=== PATIENT | female | born 1990 ===

== ENCOUNTER 2018-06-27 21:45 | Emergency (ER) | payer OTHER ==
[2018-06-27 21:45] VITALS: BMI 34.9
[2018-06-27 21:52] VITALS: BP 110/56; PULSE 74; RESP 16; TEMP 98.2; O2SAT 98
[2018-06-27 22:35] LABS: SQUAMOUS EPITHIAL 2 /hpf (0-5); URINE BACTERIA RARE (<OCC); URINE BILIRUBIN NEGATIVE (NEGATIVE); URINE BLOOD NEGATIVE (NEGATIVE); URINE CLARITY Hazy (Clear); URINE COLOR Yellow (YELLOW); URINE GLUCOSE (UA) NORMAL (Normal); URINE LEUKOCYTE ESTERASE NEG Leu/uL (Negative); URINE PROTEIN NEGATIVE (NEGATIVE); URINE UROBILINOGEN NORMAL mg/dL (0.2-1.0)
--- NOTE | 2018-06-27 23:50 | C.PDOC ---
History Of Present Illness 28 year old female 6 weeks , , presents to the ED c/o small amount of brownish vaginal discharge that she noticed on her paintyliner once earlier today. Patient denies fever, chills , nausea, vomit, diarrhea, abdominal pain, back pain, dysuria, hematuria, vaginal bleeding. Time Seen by Provider: 06/27/18 21:58 Chief Complaint (Nursing): Female Genitourinary History Per: Patient History/Exam Limitations: no limitations Onset/Duration Of Symptoms: Days Current Symptoms Are (Timing): Still Present Quality Of Discomfort: "Pain" Associated Symptoms: denies: Nausea, Vomiting, Urinary Symptoms Recent travel outside of the [place]: No Additional History Per: Patient Abnormal Vaginal Bleeding: No Last Menstral Period: 05/11/2018 : 3 Para: 2 Past Medical History Reviewed: Historical Data, Nursing Documentation, Vital Signs Vital Signs: Last Vital Signs Temp 98.2 F 06/27/18 21:49 Pulse 74 06/27/18 21:49 Resp 16 06/27/18 21:49 BP 110/56 L 06/27/18 21:49 Pulse Ox 98 06/27/18 21:49 - Medical History PMH: No Chronic Diseases Surgical History: No Surg Hx - [facility] Procedures APPLICATION OF SPLINT (04/05/14) DELIVERY OF PRODUCTS OF CONCEPTION, EXTERNAL APPROACH (10/04/15) MONITORING OF POC, CARDIAC RATE, 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 Negative for: Dysuria, Hematuria, Vaginal Bleeding Musculoskeletal: Negative for: Back Pain Skin: Negative for: Rash Physical Exam - Physical Exam Appears: Non-toxic, No Acute Distress Skin: Normal Color, Warm, Dry Head: Atraumatic, Normacephalic Eye(s): bilateral: Normal Inspection Neck: Normal ROM, Supple Chest: Symmetrical Cardiovascular: Rhythm Regular Respiratory: Normal Breath Sounds, No Rales, No Rhonchi, No Wheezing Gastrointestinal/Abdominal: Soft, No Tenderness, No Guarding, No Rebound Back: No CVA Tenderness Pelvic: Vaginal Discharge (minimal whitish ), No Cervical Motion Tenderness, No Cervix Open (closed), Other (no clots) Extremity: Normal ROM, No Tenderness, No Swelling Neurological/Psych: Oriented x3, Normal Speech, Normal Cognition Gait: Steady ED Course And Treatment O2 Sat by Pulse Oximetry: 98 (ON RA) Pulse Ox Interpretation: Normal Progress Note: Plan: - Labs. - POC. - UA. On reassessment, patient is resting comfortably, and is in no acute distress. Patient with no abdominal pain or bleeding and was instructed to follow up with physician/clinic in 1-2 days for further evaluation and possible repeat BHCG as needed Return precautions discussed. Disposition Counseled Patient/Family Regarding: Diagnosis, Need For Followup - Disposition Referrals: Mike Navas MD [Staff Provider] - Disposition: HOME/ ROUTINE Disposition Time: 23:47 Condition: STABLE Additional Instructions: Please see your OB tomorrow for further evaluation Return to ER if abdominal pain, vaginal bleeding or worse Instructions: - The Second Month Forms: [facility] (Pakistani) - Clinical Impression Clinical Impression: - PA / SEW OUT OPERATOR / Resident Statement MD/DO has reviewed & agrees with the documentation as recorded. - Scribe Statement The provider has reviewed the documentation as recorded by the Scribe Blake Wiggins All medical record entries made by the Scribe were at my direction and personally dictated by me. I have reviewed the chart and agree that the record accurately reflects my personal performance of the history, physical exam, medical decision making, and the department course for this patient. I have also personally directed, reviewed, and agree with the discharge instructions and disposition.
== END 2018-06-27 23:55 | disposition home or self-care (01) ==
LOC: C.ER 21:45
DX: O26.891 Other specified pregnancy related conditions, first trimester (principal); Z3A.01 Less than 8 weeks gestation of pregnancy

== ENCOUNTER 2018-07-03 23:46 | Emergency (ER) | payer OTHER ==
[2018-07-03 23:46] VITALS: BMI 34.9
[2018-07-03 23:53] VITALS: PULSE 76; O2SAT 100
[2018-07-04] MEDS ORDERED: Sodium Chloride 0.9% 1,000 ML IV ONE (00:10)
--- NOTE | 2018-07-04 00:10 | C.PDOC ---
History Of Present Illness Patient who is , 7 weeks , presents to the ER with a complaint of vaginal bleeding that began tonight. Patient states 2 hours ago she showered and when she dried herself she noticed blood on the towel. Denies cramping, fever, or chills. Time Seen by Provider: 07/04/18 00:09 Chief Complaint (Nursing): Female Genitourinary History Per: Patient History/Exam Limitations: no limitations Onset/Duration Of Symptoms: Hrs Current Symptoms Are (Timing): Still Present Severity: Mild Pain Scale Rating Of: 2 Associated Symptoms: denies: Fever, Chills, Other (Cramping) Alleviating Factors: None Recent travel outside of the [place]: No Abnormal Vaginal Bleeding: Yes Past Medical History Reviewed: Historical Data, Nursing Documentation, Vital Signs Vital Signs: Last Vital Signs Temp 98.1 F 07/03/18 23:50 Pulse 76 07/03/18 23:50 Resp 18 07/03/18 23:50 BP 106/67 07/03/18 23:50 Pulse Ox 100 07/03/18 23:50 - [facility] Procedures APPLICATION OF SPLINT (04/05/14) DELIVERY OF PRODUCTS OF CONCEPTION, EXTERNAL APPROACH (10/04/15) MONITORING OF POC, CARDIAC RATE, WIRE CHARGER APPROACH (09/27/15) Family History: States: No Known Family Hx - Social History Hx Tobacco Use: No Hx Alcohol Use: Yes Hx Substance Use: No - Immunization History Hx Tetanus Toxoid Vaccination: No Hx Influenza Vaccination: No Hx Pneumococcal Vaccination: No Review Of Systems Constitutional: Negative for: Fever, Chills Cardiovascular: Negative for: Chest Pain, Palpitations Respiratory: Negative for: Cough, Shortness of Breath Gastrointestinal: Negative for: Abdominal Pain Genitourinary: Positive for: Vaginal Bleeding Physical Exam - Physical Exam Appears: Non-toxic Skin: Warm, Dry Head: Normacephalic Oral Mucosa: Moist Chest: Symmetrical, No Tenderness Cardiovascular: Rhythm Regular Respiratory: No Rales, No Rhonchi, No Wheezing Gastrointestinal/Abdominal: Soft, No Tenderness Neurological/Psych: Oriented x3 ED Course And Treatment - Laboratory Results Result Diagrams: 07/04/18 00:52 07/04/18 00:52 O2 Sat by Pulse Oximetry: 100 (Room air) Pulse Ox Interpretation: Normal Progress Note: Blood work, urinalysis, and transvaginal US ordered. IV fluids administered. Reevaluation Time: 02:51 Reassessment Condition: Improved Disposition Counseled Patient/Family Regarding: Studies Performed, Diagnosis, Need For Followup - Disposition Referrals: Mike Navas MD [Staff Provider] - Disposition: HOME/ ROUTINE Disposition Time: 00:10 Condition: FAIR Additional Instructions: Please return if symptoms recur Instructions: Threatened Miscarriage (DC) Forms: [facility] (Czech) - Clinical Impression Clinical Impression: Threatened , Subchorionic hemorrhage - Scribe Statement The provider has reviewed the documentation as recorded by the Scribe Larry Moreno All medical record entries made by the Scribe were at my direction and personally dictated by me. I have reviewed the chart and agree that the record accurately reflects my personal performance of the history, physical exam, medical decision making, and the department course for this patient. I have also personally directed, reviewed, and agree with the discharge instructions and disposition.
[2018-07-04 00:57] LABS: BASO % 0.3 % (0.0-2.0); EOS # 0.2 K/uL (0.0-0.7); EOS % 1.5 % (0.0-4.0); LYMPH # 2.8 K/uL (1.0-4.3); LYMPH % 25.1 % (20.0-40.0); MEAN CELL VOLUME 80.7 fL (81.0-99.0); MEAN CORPUSCULAR HEMOGLOBIN 26.3 pg (27.0-31.0); MEAN CORPUSCULAR HGB CONC 32.6 g/dL (33.0-37.0); MEAN PLATELET VOLUME 8.6 fL (7.2-11.7); MONO # 0.8 K/uL (0.0-0.8); MONO % 6.8 % (0.0-10.0); NEUT # 7.4 K/uL (1.8-7.0); NEUT % 66.3 % (50.0-75.0); RBC 4.94 Mil/uL (3.80-5.20); WHITE BLOOD COUNT 11.2 K/uL (4.8-10.8)
[2018-07-04 00:59] LABS: SQUAMOUS EPITHIAL 5 /hpf (0-5); URINE BACTERIA OCC (<OCC); URINE BILIRUBIN NEGATIVE (NEGATIVE); URINE CLARITY Hazy (Clear); URINE COLOR Straw (YELLOW); URINE GLUCOSE (UA) NORMAL (Normal); URINE LEUKOCYTE ESTERASE NEG Leu/uL (Negative); URINE PROTEIN NEGATIVE (NEGATIVE); URINE UROBILINOGEN NORMAL mg/dL (0.2-1.0)
[2018-07-04 01:04] LABS: INR 1.1; PROTHROMBIN TIME 12.3 SECONDS (9.7-12.2)
[2018-07-04 01:06] LABS: URINE BLOOD TRACE (NEGATIVE)
[2018-07-04 01:10] LABS: ALB/GLOB RATIO 1.5 (1.0-2.1); ALBUMIN 4.5 g/dL (3.5-5.0); ALT/SGPT 19 U/L (9-52); AST/SGOT 16 U/L (14-36); BLOOD UREA NITROGEN 9 mg/dL (7-17); CALCIUM 9.3 mg/dl (8.6-10.4); GFR NON-AFRICAN AMERICAN > 60
[2018-07-04 03:00] VITALS: BP 110/71; RESP 16; TEMP 98.2
--- NOTE | 2018-07-04 11:23 | US ---
Pelvic ultrasound HISTORY: Vaginal bleeding. . Comparison: None available. Technique: Real-time sonography was performed through the pelvis utilizing transabdominal and transvaginal techniques. Findings: Limited study for viability purposes only. Uterus: 8.2 x 6.3 x 6.2 centimeters. Heterogeneous echotexture. Retroverted. Cervix measures 3.5 centimeters. Intrauterine gestational sac measuring 2.28 centimeters corresponding to a gestational age of 6 weeks and 6 days. Yolk sac measures 3.5 millimeters. [place]-rump length measures 1.53 centimeters corresponding to a gestational age of approximately 8 weeks and 0 days. heart rate of 139 beats per minute. Heterogeneous focus/collection adjacent to the gestational sac suggestive for subchorionic hemorrhage measuring 8 x 6 x 5 millimeters. Clinical correlation. No free fluid in the pelvic cul-de-sac. Right ovary: 2.3 x 1.7 x 2.1 centimeters. Normal flow. Left ovary: 2.6 x 1.2 x 2.7 centimeters. Normal flow. Impression: Intrauterine corresponding to a gestational age of approximately 8 weeks and 0 days by crown-rump length of 1.53 centimeters. heart rate of 139 beats per minute. Yolk sac identified. Heterogeneous collection adjacent to the gestational sac measuring 8 x 6 x 5 millimeter suggestive for subchorionic hemorrhage. Continued interval follow-up would be helpful. Limited 1st trimester ultrasound for viability purposes only. Continued interval followup with serial ultrasound, serial HCG levels, and gynecological consultation would be helpful if clinically indicated. A preliminary report was submitted at 2:43 a.m. on 07/04/[address] Glenroy Canada from [facility].
== END 2018-07-04 03:00 | disposition home or self-care (01) ==
LOC: C.ER 23:46
DX: O20.0 Threatened abortion (principal); Z3A.08 8 weeks gestation of pregnancy
CPT/HCPCS: 76805; 76817; 80053; 81001; 84702; 85025; 85610; 85730; 86850; 86900; 99283; J7030